=== PATIENT | female | born 1970 | race Asian ===

== ENCOUNTER → 2024-02-05 | Outpatient (CLI) | payer OTHER ==
[2024-02-05 15:43] LABS: Urine WBC None Seen /hpf (0 - 5)
[2024-02-05 15:59] LABS: Urine Bacteria FEW /hpf (None Seen); Urine Blood Negative /uL (Negative); Urine Clarity Clear (Clear); Urine Color Colorless (Yellow); Urine Protein, UAD Negative (Negative); Urine Specific Gravity 1.009 (1.001-1.035); Urine Urobilinogen Normal (Negative)
[2024-02-05 16:28] LABS: Follicle Stimulating Hormone 141.58 IU/L (SEE BELOW); Leuteinizing Hormone 34.8 IU/L
== END | disposition home or self-care (01) ==
LOC: LAB 15:31
PROVIDERS: ATTEND Obstetrics & Gynecology
DX: N39.0 Urinary tract infection, site not specified (principal); N95.1 Menopausal and female climacteric states
CPT/HCPCS: 36415; 81001; 82670; 83001; 83002; 83036; 84403; 84443